=== PATIENT | female | born 1955 | race Hispanic/Latino ===

== ENCOUNTER → 2018-02-12 | Day surgery (SDC) | payer OTHER ==
[~2018-02-12] MED LIST: ASPIRIN81 MG; ATORVASTATIN CA10 MG PO; CLOPIDOGREL75 MG PO; FENTANYL CITRATE/PF 100MCG/2 ML INJ ONE; HYDROCHLOROTHIA25 MG; LEVOTHYROXINE50 MCG PO; MIDAZOLAM HCL 2 MG/2 ML VIAL ONE; PROPOFOL IV EMULSION 10 MG/ML 50 ML VIAL ONE; VASOTEC10 M1
--- OUTSIDE RECORDS SUMMARY | 2018-02-12 07:37 | XMS REPORT ---
Author Author Quin Coleman Organization [employer] Address Unknown Phone Unavailable Care Team Providers [facility] [employer] Name Role Phone Quin Coleman CP Unavailable Allergies, Adverse Reactions, Alerts Substance Reaction Event Type Lidocaine hives Drug Allergy Cipro hives Drug Allergy Encounters Encounter Location Date Unknown Quin Coleman MD [place] Dec 02, 2013 Problems Problem Type Condition ICD-9 Code Onset Dates Condition Status Assessment Aortic valve disorder 424.1 Active Problem Aortic valve disorder 424.1 Active Assessment CAD, [place] Coronary Artery 414.01 Active Problem Abnormal electrocardiogram 794.31 Active Problem CAD, [place] Coronary Artery 414.01 Active Problem Carotid artherosclerosis w/o infarction 433.10 Active Problem Hypercholesterolemia 272.0 Active Problem Shortness of breath 786.05 Active Problem PTCA Status V45.[address] 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 Active Assessment Hypercholesterolemia 272.0 Active Assessment PTCA Status V45.82 Active Assessment Shortness of breath 786.05 Active Assessment Abnormal electrocardiogram 794.31 Active Assessment Carotid artherosclerosis w/o infarction 433.[address] 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 Active Medications Medication Code System Code Instructions Start Date End Date Status Dosage Clopidogrel Bisulfate [facility] [address]-72 75 MG Orally Once a day Active 1 tablet Levothyroxine Sodium [facility] [address]-52 137 MCG Orally Once a day Active 1 tablet Aspir-Low [facility] [address]-40 81 MG Orally Once a day Active 1 tablet Atorvastatin Calcium [facility] [address]-96 80 mg Orally Once a day Active 1 tablet Enalapril Maleate [facility] [address]-67 5 MG Orally Once a day Active 1 tablet Social History Social History Element Qualifiers Date Reported Smoking . Status Never Smoker Dec 02, 2013 Alcohol Use No. Dec 02, 2013 Alcohol Screening: No. Points: 0, Interpretation: Negative Dec 02, 2013 Marital Status: . Dec 02, 2013 Do you drink alcohol? No. Dec 02, 2013 Occupation: . Housewife Dec 02, 2013 Vital Signs Date/Time: Dec 02, 2013 Weight 217 lbs Height 61 in Temperature 97.1 F Cardiac Monitoring Heart Rate 52 /min Blood Pressure Diastolic 65 mm Hg Blood Pressure Systolic 130 mm Hg Summary Purpose [employer] Submission
--- OUTSIDE RECORDS SUMMARY | 2018-02-12 07:37 | XMS REPORT | Continuity of Care Document ---
Author Author [facility] Interface Address Unknown Phone Unavailable Problems Problem Status Onset Date Classification Date Reported Comments Source Aortic valve disorder Active Diagnosis 12/27/2013 uQin Coleman CAD, [place] Coronary Artery Active Diagnosis 12/27/2013 Quin Coleman Abnormal electrocardiogram Active Problem 12/27/2013 Quin Coleman Carotid artherosclerosis w/o infarction Active Problem 12/27/2013 Quin Coleman Hypercholesterolemia Active Problem 12/27/2013 Quin Coleman Shortness of breath Active Problem 12/27/2013 Quin Coleman PTCA Status Active Problem 12/27/2013 Quin Coleman [place] Old myocardial infarction Active Problem 12/27/2013 Quin Coleman Medications Medication Details Route Status Patient Instructions Ordering Provider Order Date Source Clopidogrel Bisulfate 1 tablet Orally Active 75 MG Orally Once a day [place] Coleman Levothyroxine Sodium 1 tablet Orally Active 137 MCG Orally Once a day [place] Coleman Aspir-Low 1 tablet Orally Active 81 MG Orally Once a day [place] Coleman Atorvastatin Calcium 1 tablet Orally Active 80 mg Orally Once a day [place] Coleman Enalapril Maleate 1 tablet Orally Active 5 MG Orally Once a day [place] Coleman Allergies, Adverse Reactions, Alerts Substance Category Reaction Severity Reaction type Status Date Reported Comments Source Lidocaine Adverse Reaction hives Adverse Reaction Active 12/02/2013 Quin Coleman Cipro Adverse Reaction hives Adverse Reaction Active 12/02/2013 Quin Coleman Immunizations Immunization Date Given Site Status Last Updated Comments Source Results Order Name Results Value Reference Range Date Interpretation Comments Source Vital Signs Vital Sign Value Date Comments Source Weight 217 12/02/2013 Quin Coleman Height 61 12/02/2013 Quin Coleman Temperature Oral (F) 97.1 F 12/02/2013 Quin Coleman Heart Rate 52 12/02/2013 Quin Coleman Diastolic (mm Hg) 65 12/02/2013 Quin Coleman Systolic (mm Hg) 130 12/02/2013 Quin Coleman Encounters Location Location Details Encounter Type Encounter Number Reason For Visit Attending Provider ADM Date DC Date Status Source Quin Coleman MD [place] Unknown [id number] 12/02/2013 12/02/2013 Quin Coleman Procedures Procedure Code Date Perfomer Comments Source
[2018-02-12 11:45] VITALS: BP 123/70
== END | disposition home or self-care (01) ==
LOC: OR 07:34
PROVIDERS: ATTEND Internal Medicine Gastroenterology
DX: Z12.11 Encounter for screening for malignant neoplasm of colon (principal); D12.2 Benign neoplasm of ascending colon; D12.8 Benign neoplasm of rectum; K29.50 Unspecified chronic gastritis without bleeding; K44.9 Diaphragmatic hernia without obstruction or gangrene; K57.30 Diverticulosis of large intestine without perforation or abscess without bleeding; K64.8 Other hemorrhoids; I10 Essential (primary) hypertension; E03.9 Hypothyroidism, unspecified; E78.00 Pure hypercholesterolemia, unspecified; I25.10 Atherosclerotic heart disease of native coronary artery without angina pectoris; F32.9 Major depressive disorder, single episode, unspecified; Z01.810 Encounter for preprocedural cardiovascular examination; Z79.02 Long term (current) use of antithrombotics/antiplatelets; Z79.82 Long term (current) use of aspirin; Z68.41 Body mass index [BMI] 40.0-44.9, adult; Z95.5 Presence of coronary angioplasty implant and graft
CPT/HCPCS: 43239; 45384; 93005; J2250; 43235; 45378